=== PATIENT | male | born 1935 | race Caucasian/White ===

== ENCOUNTER 2016-07-07 17:24 | Emergency (ER) | payer MEDICARE, OTHER ==
[2016-07-08] MEDS ORDERED: ASPI325T2 PO (00:11)
[2016-07-08] MEDS ORDERED: ATOR20TA PO (00:12)
[2016-07-08] MEDS ORDERED: HYDR12.5 PO (00:13)
[2016-07-08] MEDS ORDERED: LEVO125T8 PO (00:14)
[2016-07-08] MEDS ORDERED: METO-304 PO (00:15)
[2016-07-08] MEDS ORDERED: RAMI10CA PO (00:16)
== END 2016-07-07 18:50 | disposition home or self-care (01) ==
LOC: ER 17:48
DX: Z53.21 Procedure and treatment not carried out due to patient leaving prior to being seen by health care provider (principal)

== ENCOUNTER 2016-07-07 20:54 | Inpatient (IN) | payer MEDICARE, OTHER ==
[~2016-07-07] VITALS: Ht 165.1 cm; Wt 68.0 kg
[2016-07-07 21:30] VITALS: BP 137/75
[2016-07-07] MEDS ORDERED: MAGNESIUM HYDROXIDE 30 ML UDC PO PRN (22:00)
[2016-07-07] MEDS ORDERED: MAG HYDROX/AL HYDROX/SIMETH 30 ML UDC PO PRN (22:00)
[2016-07-07] MEDS ORDERED: ACETAMINOPHEN 325 MG TABLET PO PRN (22:00)
[2016-07-07] MEDS ORDERED: TEMAZEPAM 7.5 MG CAPSULE ONE (22:58)
[2016-07-07] MEDS: TEMAZEPAM 7.5 MG CAPSULE PO PRN (23:02)
[2016-07-08] MEDS ORDERED: ASPI325T2 PO (00:11)
[2016-07-08] MEDS ORDERED: ATOR20TA PO (00:12)
[2016-07-08] MEDS ORDERED: HYDR12.5 PO (00:13)
[2016-07-08] MEDS ORDERED: LEVO125T8 PO (00:14)
[2016-07-08] MEDS ORDERED: METO-304 PO (00:15)
[2016-07-08] MEDS ORDERED: RAMI10CA PO (00:16)
[2016-07-08] MEDS ORDERED: Z GUARD REMEDY 2 OZ OINT TP PRN (02:00)
[2016-07-08 08:00] VITALS: BP 146/75
[2016-07-08 08:44] LABS: ALBUMIN 3.1 g/dL (3.4-5.0); BILIRUBIN,TOTAL 0.5 mg/dL (0.2-1.0); CALCIUM, SERUM 8.2 mg/dL (8.5-10.1); CREATININE 0.7 mg/dL (0.6-1.3); TOTAL PROTEIN, SERUM 6.6 g/dL (6.4-8.2)
[2016-07-08] MEDS ORDERED: POTASSIUM CHLORIDE 20 MEQ TAB.PRT.SR PO ONE (09:00)
[2016-07-08] MEDS ORDERED: FLU VACC QS 2016-17(36MOS+)/PF 0.5 ML DISP.SYRIN IM ONE (09:00)
[2016-07-08] MEDS ORDERED: HYDROCHLOROTHIAZIDE 12.5 MG CAPSULE PO SCH (09:31)
[2016-07-08] MEDS: METOPROLOL SUCCINATE 50 MG TAB.SR.24H PO SCH (09:37)
[2016-07-08] MEDS: LEVOTHYROXINE SODIUM 125 MCG TABLET PO SCH (09:37)
[2016-07-08] MEDS: ATORVASTATIN 10 MG TABLET PO SCH (09:43)
[2016-07-08] MEDS: ASPIRIN 325 MG TABLET PO SCH (09:43)
[2016-07-08 16:00] VITALS: BP 157/84
[2016-07-08 19:56] VITALS: BP 162/92
[2016-07-08] MEDS: TEMAZEPAM 7.5 MG CAPSULE PO PRN (22:12)
[2016-07-09] MEDS ORDERED: clonazePAM 1 MG TABLET ONE (03:11)
[2016-07-09] MEDS: clonazePAM 1 MG TABLET PO PRN ×2 (03:17→10:58)
[2016-07-09] MEDS ORDERED: LORAZEPAM INJ 2 MG/ML VIAL IM ONE (03:30)
[2016-07-09 08:00] VITALS: BP 147/71
[2016-07-09] MEDS: ATORVASTATIN 10 MG TABLET PO SCH (09:00)
[2016-07-09] MEDS: HYDROCHLOROTHIAZIDE 25 MG TABLET PO SCH (09:00)
[2016-07-09] MEDS: ESCITALOPRAM OXALATE (10 MG) 10 MG TABLET PO SCH (09:00)
[2016-07-09] MEDS: ASPIRIN 325 MG TABLET PO SCH (09:00)
[2016-07-09] MEDS: RAMIPRIL 5 MG CAPSULE PO SCH (09:00)
[2016-07-09] MEDS: LEVOTHYROXINE SODIUM 125 MCG TABLET PO SCH (09:00)
[2016-07-09] MEDS: METOPROLOL SUCCINATE 50 MG TAB.SR.24H PO SCH (09:00)
[2016-07-09 16:00] VITALS: BP 135/76
[2016-07-09] MEDS: Z GUARD REMEDY 2 OZ OINT TP SCH ×2 (18:34→20:50)
[2016-07-09 20:00] VITALS: BP 113/59
[2016-07-10 07:30] LABS: CALCIUM, SERUM 8.9 mg/dL (8.5-10.1); CREATININE 0.8 mg/dL (0.6-1.3); POTASSIUM 3.1 mmol/L (3.5-5.1)
[2016-07-10 08:00] VITALS: BP_SYST 116; BP_SYST 125; BP_DIAS 58; BP_DIAS 63
[2016-07-10] MEDS: RAMIPRIL 5 MG CAPSULE PO SCH (08:20)
[2016-07-10] MEDS: HYDROCHLOROTHIAZIDE 25 MG TABLET PO SCH (08:22)
[2016-07-10] MEDS: ASPIRIN 325 MG TABLET PO SCH (08:23)
[2016-07-10] MEDS: METOPROLOL SUCCINATE 50 MG TAB.SR.24H PO SCH (08:25)
[2016-07-10] MEDS: ESCITALOPRAM OXALATE (10 MG) 10 MG TABLET PO SCH (08:25)
[2016-07-10] MEDS: ATORVASTATIN 10 MG TABLET PO SCH (08:26)
[2016-07-10] MEDS: LEVOTHYROXINE SODIUM 125 MCG TABLET PO SCH (08:26)
[2016-07-10] MEDS: Z GUARD REMEDY 2 OZ OINT TP SCH ×2 (09:11→21:37)
[2016-07-10 16:04] VITALS: BP 119/61
[2016-07-10] MEDS ORDERED: POTASSIUM CHLORIDE 20 MEQ TAB.PRT.SR PO ONE (19:30)
[2016-07-10 20:00] VITALS: BP 128/62
[2016-07-10] MEDS: TEMAZEPAM 7.5 MG CAPSULE PO PRN (21:36)
[2016-07-11 08:00] VITALS: BP 136/79
[2016-07-11] MEDS: ASPIRIN 325 MG TABLET PO SCH (08:38)
[2016-07-11] MEDS: LEVOTHYROXINE SODIUM 125 MCG TABLET PO SCH (08:39)
[2016-07-11] MEDS: ESCITALOPRAM OXALATE (10 MG) 10 MG TABLET PO SCH (08:39)
[2016-07-11] MEDS: ATORVASTATIN 10 MG TABLET PO SCH (08:39)
[2016-07-11] MEDS: HYDROCHLOROTHIAZIDE 25 MG TABLET PO SCH (08:39)
[2016-07-11] MEDS: METOPROLOL SUCCINATE 50 MG TAB.SR.24H PO SCH (08:40)
[2016-07-11] MEDS: RAMIPRIL 5 MG CAPSULE PO SCH (08:40)
[2016-07-11] MEDS: Z GUARD REMEDY 2 OZ OINT TP SCH ×2 (08:43→20:43)
[2016-07-11 16:11] VITALS: BP 135/67
[2016-07-11 20:00] VITALS: BP 137/71
[2016-07-11] MEDS: clonazePAM 1 MG TABLET PO PRN (20:42)
[2016-07-12 08:04] VITALS: BP 130/60
[2016-07-12] MEDS: ATORVASTATIN 10 MG TABLET PO SCH (08:39)
[2016-07-12] MEDS: METOPROLOL SUCCINATE 50 MG TAB.SR.24H PO SCH (08:39)
[2016-07-12] MEDS: ESCITALOPRAM OXALATE (10 MG) 10 MG TABLET PO SCH (08:39)
[2016-07-12] MEDS: ASPIRIN 325 MG TABLET PO SCH (08:39)
[2016-07-12] MEDS: LEVOTHYROXINE SODIUM 125 MCG TABLET PO SCH (08:39)
[2016-07-12] MEDS: RAMIPRIL 5 MG CAPSULE PO SCH (08:40)
[2016-07-12] MEDS: HYDROCHLOROTHIAZIDE 25 MG TABLET PO SCH (08:41)
[2016-07-12] MEDS: Z GUARD REMEDY 2 OZ OINT TP SCH ×2 (08:42→21:42)
[2016-07-12 15:51] VITALS: BP 128/78
[2016-07-12 19:51] VITALS: BP 120/60
[2016-07-13] MEDS: TEMAZEPAM 7.5 MG CAPSULE PO PRN ×2 (01:33→21:40)
[2016-07-13 08:00] VITALS: BP 126/72
[2016-07-13] MEDS: ASPIRIN 325 MG TABLET PO SCH (08:58)
[2016-07-13] MEDS: METOPROLOL SUCCINATE 50 MG TAB.SR.24H PO SCH (08:59)
[2016-07-13] MEDS: ATORVASTATIN 10 MG TABLET PO SCH (08:59)
[2016-07-13] MEDS: HYDROCHLOROTHIAZIDE 25 MG TABLET PO SCH (08:59)
[2016-07-13] MEDS: LEVOTHYROXINE SODIUM 125 MCG TABLET PO SCH (08:59)
[2016-07-13] MEDS: ESCITALOPRAM OXALATE (10 MG) 10 MG TABLET PO SCH (08:59)
[2016-07-13] MEDS: RAMIPRIL 5 MG CAPSULE PO SCH (09:00)
[2016-07-13] MEDS: Z GUARD REMEDY 2 OZ OINT TP SCH ×2 (09:00→21:37)
[2016-07-13 16:00] VITALS: BP 136/69
[2016-07-13] MEDS: clonazePAM 1 MG TABLET PO PRN (18:19)
[2016-07-13 20:43] VITALS: BP 163/99
[2016-07-14] MEDS: clonazePAM 1 MG TABLET PO PRN (06:33)
[2016-07-14 08:37] VITALS: BP 125/75
[2016-07-14] MEDS: ESCITALOPRAM OXALATE (10 MG) 10 MG TABLET PO SCH (08:49)
[2016-07-14] MEDS: METOPROLOL SUCCINATE 50 MG TAB.SR.24H PO SCH (08:50)
[2016-07-14] MEDS: LEVOTHYROXINE SODIUM 125 MCG TABLET PO SCH (08:50)
[2016-07-14] MEDS: ASPIRIN 325 MG TABLET PO SCH (08:50)
[2016-07-14] MEDS: ATORVASTATIN 10 MG TABLET PO SCH (08:50)
[2016-07-14] MEDS: HYDROCHLOROTHIAZIDE 25 MG TABLET PO SCH (08:51)
[2016-07-14] MEDS: RAMIPRIL 5 MG CAPSULE PO SCH (08:51)
[2016-07-14] MEDS: Z GUARD REMEDY 2 OZ OINT TP SCH ×2 (08:52→21:21)
[2016-07-14 16:21] VITALS: BP 123/67
[2016-07-14 20:03] VITALS: BP 115/60
[2016-07-14] MEDS: TEMAZEPAM 7.5 MG CAPSULE PO PRN (21:51)
[2016-07-15] MEDS: clonazePAM 1 MG TABLET PO PRN (03:18)
[2016-07-15 07:49] LABS: BASOPHILS % (AUTO) 0.3 % (0.0-2.0); DIFF TOTAL % 100 %; EOSINOPHILS # (AUTO) 0.1 /CMM (0.0-0.7); EOSINOPHILS % (AUTO) 1.7 % (0.0-6.0); HEMATOCRIT 49 % (39-51); HEMOGLOBIN 16.2 g/dL (13.5-17.5); LYMPHOCYTES # (AUTO) 1.4 /CMM (0.8-4.8); MEAN CORPUSCULAR HEMOGLOBIN 28 PG (26.0-33.0); MEAN CORPUSCULAR HGB CONC 33 g/dl (31.0-36.0); MEAN CORPUSCULAR VOLUME 84 fL (80-96); MONOCYTES # (AUTO) 0.7 /CMM (0.1-1.30); MONOCYTES % (AUTO) 8.5 % (2.0-12.0); NEUTROPHILS # (AUTO) 6.1 /CMM (1.8-8.9); NEUTROPHILS % (AUTO) 72.5 % (43.0-81.0); PLATELET COUNT (AUTO) 327 /CMM (150-450); RED BLOOD CELL COUNT(AUTO) 5.84 MIL/uL (4.5-6.0); WHITE BLOOD COUNT (AUTO) 8.4 K/uL (4.3-11.0)
[2016-07-15 08:00] VITALS: BP 127/65
[2016-07-15 08:00] LABS: CALCIUM, SERUM 9.1 mg/dL (8.5-10.1); POTASSIUM 3.4 mmol/L (3.5-5.1)
[2016-07-15] MEDS: ESCITALOPRAM OXALATE (10 MG) 10 MG TABLET PO SCH (09:22)
[2016-07-15] MEDS: ATORVASTATIN 10 MG TABLET PO SCH (09:23)
[2016-07-15] MEDS: ASPIRIN 325 MG TABLET PO SCH (09:23)
[2016-07-15] MEDS: METOPROLOL SUCCINATE 50 MG TAB.SR.24H PO SCH (09:24)
[2016-07-15] MEDS: HYDROCHLOROTHIAZIDE 25 MG TABLET PO SCH (09:25)
[2016-07-15] MEDS: LEVOTHYROXINE SODIUM 125 MCG TABLET PO SCH (09:31)
[2016-07-15] MEDS: RAMIPRIL 5 MG CAPSULE PO SCH (09:36)
[2016-07-15] MEDS: Z GUARD REMEDY 2 OZ OINT TP SCH ×2 (09:37→21:11)
[2016-07-15 16:00] VITALS: BP 129/65
[2016-07-15] MEDS ORDERED: POTASSIUM CHLORIDE 20 MEQ POWDER PACKET PO ONE (19:00)
[2016-07-15 20:00] VITALS: BP 132/74
[2016-07-15] MEDS: TEMAZEPAM 7.5 MG CAPSULE PO PRN (21:09)
[2016-07-16 08:00] VITALS: BP 137/73
[2016-07-16] MEDS: ASPIRIN 325 MG TABLET PO SCH (08:07)
[2016-07-16] MEDS: HYDROCHLOROTHIAZIDE 25 MG TABLET PO SCH (08:08)
[2016-07-16] MEDS: ESCITALOPRAM OXALATE (10 MG) 10 MG TABLET PO SCH ×2 (08:08→09:00)
[2016-07-16] MEDS: LEVOTHYROXINE SODIUM 125 MCG TABLET PO SCH (08:08)
[2016-07-16] MEDS: ATORVASTATIN 10 MG TABLET PO SCH (08:09)
[2016-07-16] MEDS: METOPROLOL SUCCINATE 50 MG TAB.SR.24H PO SCH (08:09)
[2016-07-16] MEDS: RAMIPRIL 5 MG CAPSULE PO SCH (08:10)
[2016-07-16] MEDS: Z GUARD REMEDY 2 OZ OINT TP SCH ×2 (09:25→23:07)
[2016-07-16] MEDS: clonazePAM 1 MG TABLET PO PRN (14:11)
[2016-07-16 16:00] VITALS: BP 100/54
[2016-07-16 20:00] VITALS: BP 105/59
[2016-07-17 08:40] VITALS: BP 122/67
[2016-07-17] MEDS: ASPIRIN 325 MG TABLET PO SCH (08:41)
[2016-07-17] MEDS: ATORVASTATIN 10 MG TABLET PO SCH (08:41)
[2016-07-17] MEDS: ESCITALOPRAM OXALATE (10 MG) 10 MG TABLET PO SCH (08:41)
[2016-07-17] MEDS: LEVOTHYROXINE SODIUM 125 MCG TABLET PO SCH (08:42)
[2016-07-17] MEDS: RAMIPRIL 5 MG CAPSULE PO SCH (08:42)
[2016-07-17] MEDS: HYDROCHLOROTHIAZIDE 25 MG TABLET PO SCH (08:42)
[2016-07-17] MEDS: Z GUARD REMEDY 2 OZ OINT TP SCH ×2 (08:43→21:27)
[2016-07-17] MEDS: METOPROLOL SUCCINATE 50 MG TAB.SR.24H PO SCH (08:43)
[2016-07-17 16:00] VITALS: BP 126/74
[2016-07-17 20:00] VITALS: BP 116/67
[2016-07-18] MEDS: clonazePAM 1 MG TABLET PO PRN (03:33)
[2016-07-18 08:00] VITALS: BP 120/76
[2016-07-18] MEDS: Z GUARD REMEDY 2 OZ OINT TP SCH ×2 (09:00→21:16)
[2016-07-18] MEDS: RAMIPRIL 5 MG CAPSULE PO SCH (09:00)
[2016-07-18] MEDS: ASPIRIN 325 MG TABLET PO SCH (10:15)
[2016-07-18] MEDS: DIVALPROEX SODIUM 125 MG TABLET.DR PO SCH ×3 (10:15→16:51)
[2016-07-18] MEDS: ATORVASTATIN 10 MG TABLET PO SCH (10:16)
[2016-07-18] MEDS: HYDROCHLOROTHIAZIDE 25 MG TABLET PO SCH (10:17)
[2016-07-18] MEDS: ESCITALOPRAM OXALATE (10 MG) 10 MG TABLET PO SCH (10:17)
[2016-07-18] MEDS: LEVOTHYROXINE SODIUM 125 MCG TABLET PO SCH (10:17)
[2016-07-18] MEDS: METOPROLOL SUCCINATE 50 MG TAB.SR.24H PO SCH (10:19)
[2016-07-18 16:00] VITALS: BP 128/68
[2016-07-18 20:00] VITALS: BP 119/68
[2016-07-19 08:43] VITALS: BP 119/64
[2016-07-19] MEDS: LEVOTHYROXINE SODIUM 125 MCG TABLET PO SCH (09:02)
[2016-07-19] MEDS: HYDROCHLOROTHIAZIDE 25 MG TABLET PO SCH (09:02)
[2016-07-19] MEDS: ATORVASTATIN 10 MG TABLET PO SCH (09:02)
[2016-07-19] MEDS: ESCITALOPRAM OXALATE (10 MG) 10 MG TABLET PO SCH (09:02)
[2016-07-19] MEDS: ASPIRIN 325 MG TABLET PO SCH (09:02)
[2016-07-19] MEDS: DIVALPROEX SODIUM 125 MG TABLET.DR PO SCH ×3 (09:02→17:12)
[2016-07-19] MEDS: METOPROLOL SUCCINATE 50 MG TAB.SR.24H PO SCH (09:03)
[2016-07-19] MEDS: Z GUARD REMEDY 2 OZ OINT TP SCH ×2 (09:03→21:19)
[2016-07-19] MEDS: RAMIPRIL 5 MG CAPSULE PO SCH (09:04)
[2016-07-19 16:45] VITALS: BP 132/87
[2016-07-19 19:34] VITALS: BP 129/70
[2016-07-19] MEDS: TEMAZEPAM 7.5 MG CAPSULE PO PRN (21:19)
[2016-07-20 08:00] VITALS: BP 118/71
[2016-07-20] MEDS: DIVALPROEX SODIUM 125 MG TABLET.DR PO SCH ×2 (08:21→12:52)
[2016-07-20] MEDS: LEVOTHYROXINE SODIUM 125 MCG TABLET PO SCH (08:21)
[2016-07-20] MEDS: HYDROCHLOROTHIAZIDE 25 MG TABLET PO SCH (08:21)
[2016-07-20] MEDS: ASPIRIN 325 MG TABLET PO SCH (08:21)
[2016-07-20] MEDS: METOPROLOL SUCCINATE 50 MG TAB.SR.24H PO SCH (08:21)
[2016-07-20 08:22] VITALS: BP 118/71
[2016-07-20] MEDS: ESCITALOPRAM OXALATE (10 MG) 10 MG TABLET PO SCH (08:22)
[2016-07-20] MEDS: RAMIPRIL 5 MG CAPSULE PO SCH (08:22)
[2016-07-20] MEDS: ATORVASTATIN 10 MG TABLET PO SCH (08:22)
[2016-07-20] MEDS: Z GUARD REMEDY 2 OZ OINT TP SCH (08:25)
[2016-07-20 08:31] LABS: CALCIUM, SERUM 8.7 mg/dL (8.5-10.1); CREATININE 0.9 mg/dL (0.6-1.3)
[2016-07-20 09:22] LABS: THYROID STIMULATING HORMONE 7.305 uIU/mL (0.358-3.74)
[2016-07-20] MEDS ORDERED: POTASSIUM CHLORIDE 20 MEQ POWDER PACKET PO ONE (12:30)
== END 2016-07-20 13:30 | disposition home or self-care (01) | DRG 885 ==
LOC: GPS 20:54
PROVIDERS: ADMIT Psychiatry & Neurology Psychiatry; ATTEND Student in an Organized Health Care Education/Training Program
DX: F33.2 Major depressive disorder, recurrent severe without psychotic features (principal); I10 Essential (primary) hypertension; E78.5 Hyperlipidemia, unspecified; E03.9 Hypothyroidism, unspecified; E87.6 Hypokalemia; I25.10 Atherosclerotic heart disease of native coronary artery without angina pectoris; Z91.5 Personal history of self-harm; Z96.649 Presence of unspecified artificial hip joint
CPT/HCPCS: 36415; 80048-TC; 80053-TC; 80061-TC; 83735-TC; 84443-TC; 85025-TC; 87081-TC